=== PATIENT | female | born 1945 | race Caucasian/White ===

== ENCOUNTER → 2016-09-15 | Outpatient (CLI) | payer OTHER ==
[~2016-09-15] MED LIST: AMLO10TA2 PO; ASCO500C49 PO; ASPI-231 PO; BUPR-60 PO; CHOL10009 PO; CLON0.1T PO; FEBU40TA PO; IBU800T PO; INSU100I4 SC; INSUINJ37 SUBCUT; LISI-646 PO; MET50T PO; PANT40TA2 PO; SIMV-8 PO; ZINC50TA2 PO
[2016-09-15 12:51] LABS: Basophils # (auto) 0 uL; Basophils % (auto) 0.4 % (0.0-2.0); Eosinophils # (auto) 0.2 uL; Eosinophils % (auto) 1.9 % (0.0-7.0); Hemoglobin 13.3 g/dL (12.2-16.2); Lymphocytes # (auto) 1.4 uL; Lymphocytes % (auto) 14.1 % (10.0-50.0); Mean Corpuscular Hemoglobin 27.4 pg (28.0-32.0); Mean Corpuscular Hgb Conc. 32.5 g/dL (32.0-36.0); Mean Corpuscular Volume 84.4 fL (80.0-100.0); Mean Platelet Volume 8.4 fL (7.4-10.4); Monocytes # (auto) 0.2 uL; Monocytes % (auto) 1.7 % (0.0-12.0); Neutrophils # (auto) 8.1 uL; Neutrophils % (auto) 81.9 % (37.0-80.0); Platelet Count (auto) 413 10^3/uL (140-450); Red Cell Distribution Width 15.8 % (11.6-16.0); SUSPECT VIEW TRANSMISSION; White Blood Cell 9.9 10^3/uL (4.4-10.8)
[2016-09-15 13:31] LABS: Albumin 3.8 g/dL (3.4-5.0); BUN/Creatinine Ratio 15.9; Bilirubin, Total 0.3 mg/dL (0.2-1.0); Calcium 9.7 mg/dL (8.5-10.1); Total Protein 8.6 g/dL (6.4-8.2)
[2016-09-15 13:51] LABS: Partial Thromboplastin Time 29.4 sec (22.64-33.71); Prothrombin Time 10.5 sec (9.37-12.3)
[2016-09-15 14:11] LABS: Urine Bilirubin Negative (Negative); Urine Blood Negative /uL (Negative); Urine Color Yellow (Yellow); Urine Glucose Normal (Normal); Urine Ketone Negative (Negative); Urine RBC 6 /hpf (0 - 4); Urine Squamous Epithelial Cell MOD /hpf (<5); Urine Urobilinogen Normal (Negative); Urine pH 6.5 (5.0-8.0)
[2016-09-15 14:15] LABS: Urine Nitrite POSITIVE (Negative)
== END | disposition home or self-care (01) ==
LOC: LAB 12:10
PROVIDERS: ATTEND Urology
DX: Z01.812 Encounter for preprocedural laboratory examination (principal)
CPT/HCPCS: 36415; 80053; 81001; 85025; 85610; 85730; 86850; 86900; 86901

== ENCOUNTER 2016-09-18 06:08 | Day surgery (SDC) | payer OTHER ==
[~2016-09-18] VITALS: Ht 162.6 cm; Wt 108.9 kg
[2016-09-18 06:15] VITALS: BP 161/86
[2016-09-18] MEDS ORDERED: METHYLENE BLUE 1% 1 ML VIAL IV ONE (07:07)
[2016-09-18] MEDS ORDERED: LIDOCAINE W/ EPINEPHRINE 1 % INJ 30ML ONE (07:07)
[2016-09-18] MEDS ORDERED: BUPIVACAINE 0.25% INJ 50ML VIAL ONE (07:07)
[2016-09-18] MEDS ORDERED: fentaNYL CITRATE 100 MCG/2 ML VL ONE ×3 (07:13→10:15)
[2016-09-18] MEDS ORDERED: MIDAZOLAM HCL 1MG/1ML-2 ML VIAL ONE ×4 (07:13→11:31)
[2016-09-18] MEDS ORDERED: LIDOCAINE HCL 2 %PF INJ 10ML AMP IJ ONE (07:14)
[2016-09-18] MEDS ORDERED: DEXAMETHASONE SOD PHOS 10MG/1ML VIAL INJ ONE (07:14)
[2016-09-18] MEDS ORDERED: ETOMIDATE (2MG/ML) 20ML VIAL IV ONE (07:14)
[2016-09-18] MEDS ORDERED: KETOROLAC TROMETH 60MG/2ML VIAL IM ONE (07:14)
[2016-09-18] MEDS ORDERED: ROCURONIUM 10MG/ML 10ML VIAL IV ONE ×3 (07:17→12:53)
[2016-09-18] MEDS ORDERED: ceFAZolin 1GM/50ML D5W 100 ML IV ONE (07:55)
[2016-09-18] MEDS ORDERED: ALBUMIN 25% 0 ML IV ONE (11:10)
[2016-09-18] MEDS ORDERED: ALBUMIN 5% 0 ML IV ONE ×2 (11:12→14:12)
[2016-09-18] MEDS ORDERED: NOREPINEPHRINE BITARTRATE 250 ML IV ONE (11:21)
[2016-09-18] MEDS ORDERED: MIDAZOLAM DRIP 100 mg/100mL NS 100 ML IV ONE (11:35)
[2016-09-18] MEDS ORDERED: HEPARIN 1,000 UNITS/ml 1ML VIAL ONE ×2 (11:52)
[2016-09-18] MEDS ORDERED: ALBUMIN 25% 100 ML IV ONE (12:24)
[2016-09-18] MEDS ORDERED: NITROGLYCERIN 50MG/250ML 250 ML IV ONE (12:25)
[2016-09-18] MEDS ORDERED: DOPamine 1600MCG/ML 250 ML IV ONE (13:08)
[2016-09-18] MEDS ORDERED: ALBUMIN 25% 200 ML IV ONE (13:27)
[2016-09-18] MEDS ORDERED: EPINEPHrine HCL INJECTION 8 MG in D5W 5% 250 ML IV STA (13:54)
[2016-09-18 14:00] LABS: Basophils # (auto) 0 uL; Basophils % (auto) 0.1 % (0.0-2.0); DEFINITIVE VIEW TRANSMISSION; Eosinophils # (auto) 0.1 uL; Eosinophils % (auto) 0.8 % (0.0-7.0); Hematocrit 15.6 % (36.0-46.0); Lymphocytes % (auto) 13.3 % (10.0-50.0); Mean Corpuscular Hgb Conc. 32.1 g/dL (32.0-36.0); Mean Corpuscular Volume 87.1 fL (80.0-100.0); Mean Platelet Volume 8.4 fL (7.4-10.4); Monocytes # (auto) 0.1 uL; Monocytes % (auto) 1.1 % (0.0-12.0); Neutrophils # (auto) 6.1 uL; Neutrophils % (auto) 84.7 % (37.0-80.0); Platelet Count (auto) 111 10^3/uL (140-450); Red Cell Distribution Width 15.8 % (11.6-16.0); SUSPECT VIEW TRANSMISSION; White Blood Cell 7.2 10^3/uL (4.4-10.8)
[2016-09-18 14:10] LABS: Anion Gap 18 (5-15); BUN/Creatinine Ratio 14.3; Blood Urea Nitrogen 16 mg/dL (7-18); Chloride 130 mmol/L (98-107); GFR African American 61 mL/min; GFR Non-African American 51 mL/min; Glucose 215 mg/dL (74-106); Potassium 4.1 mmol/L (3.5-5.1); Sodium 154 mmol/L (136-145)
[2016-09-18] MEDS ORDERED: fentaNYL CITRATE 5 ML ONE (14:12)
[2016-09-18] MEDS ORDERED: EPINEPHrine HCL 250 ML IV SCH (14:25)
[2016-09-18] MEDS ORDERED: NOREPINEPHRINE BITARTRATE 250 ML IV SCH (14:25)
[2016-09-18] MEDS ORDERED: PHENYLEPHRINE INJ 20 MG in SODIUM CHL 0.9% 250 ML IV SCH (14:25)
[2016-09-18] MEDS ORDERED: DEXTROSE (50%) 50ML SYRG IV PRN (14:30)
[2016-09-18] MEDS ORDERED: NITROGLYCERIN 0.4 MG SL TAB SL PRN (14:30)
[2016-09-18] MEDS ORDERED: SODIUM CHLORIDE 0.9% 1,000 ML IV SCH (14:30)
[2016-09-18] MEDS ORDERED: MORPHINE SULF INJ 2 MG/ML SYRINGE 1ML IV PRN (14:30)
[2016-09-18 14:49] LABS: Carbon Dioxide 6 mmol/L (21-32)
[2016-09-18] MEDS ORDERED: InsuLIN REG 1unit/0.01ml Soln (100units/ml) SC SCH (16:00)
[2016-09-18] MEDS ORDERED: ACCU-CHEK COMFORT CURVE STRIP VI SCH (16:00)
[2016-09-18] MEDS ORDERED: EPINEPHrine HCL 1 MG/10 ML SYRG IV ONE (16:04)
[2016-09-18] MEDS ORDERED: CALCIUM CHLOR(10%) 100MG/ML 10ML SYRINGE IV ONE (16:04)
[2016-09-18] MEDS ORDERED: SODIUM BICARBONATE 8.4% INJ 50ML SYRINGE IV ONE (16:04)
[2016-09-18] MEDS ORDERED: NALOXONE HCL 1MG/ML 2ML SYRINGE IV ONE (16:04)
[2016-09-18] MEDS ORDERED: PIPERACILLIN-TAZOB 2.25GM 50 ML IV SCH (18:00)
[2016-09-19] MEDS ORDERED: PANTOPRAZOLE SODIUM 40 MG/10 ML VIAL IV SCH (10:00)
== END 2016-09-18 14:50 | disposition expired ==
LOC: SUR 06:08
PROVIDERS: ATTEND Urology
DX: C64.1 Malignant neoplasm of right kidney, except renal pelvis (principal); N11.9 Chronic tubulo-interstitial nephritis, unspecified; K66.0 Peritoneal adhesions (postprocedural) (postinfection); E66.9 Obesity, unspecified; E11.9 Type 2 diabetes mellitus without complications; Z87.891 Personal history of nicotine dependence; Z90.710 Acquired absence of both cervix and uterus; Z90.49 Acquired absence of other specified parts of digestive tract; Z53.31 Laparoscopic surgical procedure converted to open procedure; I97.52 Accidental puncture and laceration of a circulatory system organ or structure during other procedure; R57.0 Cardiogenic shock; I11.0 Hypertensive heart disease with heart failure
CPT/HCPCS: 36415; 36600; 50240; 80048; 82805; 85025; 88305; 88307; 88341; 88342; 92950; 93306; J0171; J0690; J1100; J1265; J1642; J1644; J1885; J2001; J2250; J2310; J3010; J3490; J7030; J7040; J7060